=== PATIENT | female | born 1945 | race Caucasian/White ===

== ENCOUNTER 2016-10-02 19:21 | Observation (INO) | payer MEDICARE, OTHER ==
[~2016-10-02] VITALS: Ht 162.6 cm; Wt 77.0 kg
[2016-10-02 20:00] VITALS: BP 216/104; PULSE 80; RESP 18; TEMP 98.4; O2SAT 98
[2016-10-02] MEDS ORDERED: LIPI80TA PO (20:33)
[2016-10-02] MEDS ORDERED: JANU50TA8 PO (20:33)
[2016-10-02] MEDS ORDERED: CIPR250T52 PO (20:33)
[2016-10-02] MEDS ORDERED: LEXA20TA PO (20:33)
[2016-10-02] MEDS ORDERED: OMEP10CA PO (20:33)
[2016-10-02] MEDS ORDERED: LOSA25TA PO (20:55)
[2016-10-02] MEDS ORDERED: AMOX500C PO (20:55)
[2016-10-02] MEDS ORDERED: TETANUS/DIPHTHERIA TOXOID ADULT 0.5 ML VIAL IM ONE (21:00)
--- NOTE | 2016-10-02 21:33 | RADRPT ---
EXAM DATE/TIME: 10/02/2016 21:01 [facility] COMPARISON: No previous studies available for comparison. INDICATIONS : Fall Left knee pain MEDICAL HISTORY : None. SURGICAL HISTORY : None. ENCOUNTER: Initial ACUITY: 1 day PAIN SCORE: 5/10 LOCATION: Left knee FINDINGS: No fracture or subluxation seen of the left knee. There is mild medial and patellofemoral compartment ost or arthritis. No perceptible joint effusion. 2.1 x 4.9 cm benign-appearing chondrous lesion seen in the medullary space of the distal femur. CONCLUSION: 1. Intact left knee. 2. Mild medial and patellofemoral compartment osteoarthritis. 3. Benign appearing enchondroma of the distal femur. Jaime Crespo MD on October 02, 2016 at 21:30 Board Certified Radiologist. This report was verified electronically.
--- NOTE | 2016-10-02 22:08 | RADRPT ---
EXAM DATE/TIME: 10/02/2016 21:57 [facility] COMPARISON: No previous studies available for comparison. INDICATIONS : Trauma; fall. Hematoma left forehead / repetitive questions. RADIATION DOSE: 32.59 CTDIvol (mGy) MEDICAL HISTORY : Hypertension. Diabetes mellitus type 2. SURGICAL HISTORY : None. ENCOUNTER: Initial ACUITY: 1 day PAIN SCALE: Non-responsive LOCATION: cranial TECHNIQUE: Multiple contiguous axial images were obtained of the head. Using automated exposure control and adj ustment of the mA and/or kV according to patient size, radiation dose was kept as low as reasonably a chievable to obtain optimal diagnostic quality images. FINDINGS: CEREBRUM: The ventricles are normal for age. No evidence of midline shift, mass lesion, hemorrhage or acute in farction. No extra-axial fluid collections are seen. POSTERIOR FOSSA: The cerebellum and brainstem are intact. The 4th ventricle is midline. The cerebellopontine angle i s unremarkable. EXTRACRANIAL: There is a left supraorbital scalp hematoma. SKULL: The calvaria is intact. No evidence of skull fracture. CONCLUSION: Left frontal scalp contusion. No bleed or other acute intracranial abnormality. Jaime Crespo MD on October 02, 2016 at 22:06 Board Certified Radiologist. This report was verified electronically.
--- NOTE | 2016-10-02 22:09 | PD ---
HPI Chief Complaint: Fall Time Seen by Provider: 22:03 Travel History International Travel<30 days: No Contact w/Intl Traveler<30days: No Traveled to known affect area: No History of Present Illness HPI 71-year-old female that presents to the ED for evaluation of trip and fall. Patient had a mechanical fall today at a pizza place where she was carrying a pizza box and she tripped on the door edge. Patient hit her head but did not lose consciousness. Patient complains of bony pain to the head. Patient does have a hematoma to the left side of the face as well as abrasions to the face and to the hands bilaterally. Patient also has an abrasion to the left knee. Patient denies any hip or neck pain. No back pain. No chest pain or abdominal pain. Per patient her pain is 3 out of 10 and mostly on the head. She denies taking any blood thinners. She does have a history of hypertension and is supposed to take losartan but she doesn't know how much of that she takes. She did not take her medication today. She denies any drugs or alcohol. Pain does not radiate. Asians states that her last tetanus shot was in 2009. She has an allergy to latex. She denies any blurry vision or double vision. Injury occurred about an hour ago. Patient was brought here by ambulance. [facility] Past Medical History High Cholesterol: Yes Diabetes: Yes Patient Takes Glucophage: Yes (JANUMET, 10/02/16 1000) Diminished Hearing: No GERD: Yes Genitourinary: Yes (CHRONIC UTI) Hypertension: Yes Influenza Vaccination: No ?: Not Tubal Ligation: Yes Past Surgical History Other Surgery: Yes (FIBROIDS REMOVED FROM BREASTS) Social History Alcohol Use: No Tobacco Use: No Substance Use: No Allergies-Medications (Allergen,Severity, Reaction): Coded Allergies: Latex (Verified Allergy, Intermediate, RASH, 10/02/16) Reported Meds & Prescriptions Reported Meds & Active Scripts Active Reported Amoxicillin 500 Mg Cap 500 Mg PO Q6HR Losartan (Losartan Potassium) 25 Mg Tab 12.5 Mg PO DAILY Cipro (Ciprofloxacin HCl) 250 Mg Tab 62.5 Mg PO BID Omeprazole 10 Mg Cap 10 Mg PO DAILY Lexapro (Escitalopram Oxalate) 20 Mg Tab 20 Mg PO DAILY Lipitor (Atorvastatin Calcium) 80 Mg Tab 80 Mg PO HS Janumet (Sitagliptin-Metformin) 50-1,000 Mg Tab 1 Tab PO BID Review of Systems General / Constitutional: No: Fever, Chills, Weight Gain, Weight Loss, Other Eyes: No: Diploplia, Blurred Vision, Photophobia, Drainage, Redness, Foreign Body Sensation, Pain, Tearing, Blind Spots, Visual changes, Blindness, Other HENT: Positive: Headaches, No: Vertigo, Lightheadedness, Sore Throat, Rhinitis , Rhinorrhea, Congestion, Nosebleed, Neck Stiffness, Neck Pain, Masses, Gingival Bleeding, Dental Difficulties, Ear Discharge, Earache, Other Cardiovascular: No: Chest Pain or Discomfort, Palpitations, Irregular Rhythm, Tachycardia, Diaphoresis, Syncope, Dyspnea on exertion, Varicosities, Edema, Cyanosis, Varicosities, Phlebitis, Claudication, Other Respiratory: No: Cough, Shortness of Breath, Wheezing, Sneezing, Orthopnea, Hemoptysis, Stridor, Night Sweats, Pleuritic Pain, Other Gastrointestinal: No: Nausea, Vomiting, Diarrhea, Abdominal Pain, Hematemesis, Hematochezia, Constipation, Changes in Bowel Habits, Indigestion, Dysphagia, Loss of Appetite, Other Genitourinary: No: Urgency, Frequency, Dysuria, Nocturia, Hematuria, Decreased Urinary Output, Oliguria, Hesitancy, Dribbling, Incontinence, Pelvic Pain, Flank Pain, Dyspareunia, Discharge, Dysmenorrhea, Menorrhagia, Metorrhagia, Vaginal Bleeding, Other Musculoskeletal: Positive: Pain, No: Myalgias, Arthralgias, Limited ROM, Weakness, Cramping, Edema, Atrophy, Other Skin: Positive Lesions, No Rash, No Itching, No Dryness, No Lumps, No Hives, No Change in Pigmentation, No Change in nails, No Alopecia, No Breast Lumps, No Breast Tenderness, No Breast Swelling, No Other Neurologic: Positive: Headache, No: Weakness, Dizziness, Syncope, Focal Abnormalities, Coordination Problem, Tremor, Ataxia, Change in Mentation, Slurred Speech, Paresthesia, Incontinence, Seizures, Sensory Disturbance, Other Psychiatric: No: Anxiety, Depression, Suicidal Ideations, Disorder of Thought, Mood Disorder, Substance Abuse, Homicidal Ideation, Other Endocrine: No: Heat Intolerance, Cold Intolerance, Polyuria, Polydipsia, Other Hematologic/Lymphatic: No: Easy Bruising, Lymph Node Enlargement, Other Physical Exam Narrative GENERAL: SKIN: Warm and dry. HEAD: Atraumatic. Normocephalic. Patient has a 1 cm in diameter hematoma to the left eyebrow EYES: Pupils equal and round 4 mm reactive to light and accommodation. No scleral icterus. No injection or drainage. ENT: No nasal bleeding or discharge. Mucous membranes pink and moist. Tongue is midline. No uvula deviation. NECK: Trachea midline. No JVD. CARDIOVASCULAR: Regular rate and rhythm. No murmurs, S3, S4. RESPIRATORY: No accessory muscle use. Clear to auscultation. Breath sounds equal bilaterally. GASTROINTESTINAL: Abdomen soft, non-tender, nondistended. Hepatic and splenic margins not palpable. MUSCULOSKELETAL: Extremities without clubbing, cyanosis, or edema. No obvious deformities. Full range of motion of the upper and lower extremities bilaterally with no pain. Patient does have an abrasion to the left knee. Patient has abrasions to both hands bilaterally more significant on the left hand but both appear to be smaller than 2 cms in diameter. No lacerations noted. 2+ pulses bilaterally lower extremities. No scapular pain. No lumbar, thoracic, cervical spine tenderness to palpation. No pelvic bone tenderness to palpation. No ankle or foot pain noted. She does have a small abrasion to the right first digit and she has a deformity to the right first digit which per patient is chronic for her. NEUROLOGICAL: Awake and alert. No obvious cranial nerve deficits. Motor grossly within normal limits. Five out of 5 muscle strength in the arms and legs. Normal speech. PSYCHIATRIC: Appropriate mood and affect; insight and judgment normal. Data Data Last Documented VS Vital Signs Date Time Temp Pulse Resp B/P Pulse Ox O2 Delivery O2 Flow Rate FiO2 10/02/16 20:00 98.4 80 18 216/104 98 Orders Wound Care (10/02/16 20:50) Tetanus/Diphtheria Tox Adult (Tetanus/Di (10/02/16 21:00) Knee, Complete (4vws) (10/02/16 20:50) Ice/Cold Pack (10/02/16 20:50) Ct Brain W/O Iv Contrast(Rout) (10/02/16 20:50) Ct Cerv Spine W/O Contrast (10/02/16 20:50) Ct Facial Bones W/O Iv Cont (3/11/17 20:50) Complete Blood Count With Diff (10/02/16 21:58) Basic Metabolic Panel (Bmp) (10/02/16 21:58) Prothrombin Time / Inr (Pt) (10/02/16 21:58) Act Partial Throm Time (Ptt) (10/02/16 21:58) Urinalysis - C+S If Indicated (10/02/16 21:58) Magnesium (Mg) (10/02/16 21:58) Chest, Single Ap (10/02/16:58) Iv Access Insert/Monitor (10/02/16 21:58) Ecg Monitoring (10/02/16 21:58) Oximetry (10/02/16 21:58) MDM Medical Decision Making Medical Screen Exam Complete: Yes Emergency Medical Condition: Yes Medical Record Reviewed: Yes Differential Diagnosis Concussion versus ICH versus head injury versus fracture versus trauma versus abrasion versus laceration Narrative Course 71-year-old female that presents to the ED for evaluation of head injury. Patient was properly examined and was found to have signs and symptoms consistent with appears to be traumatic head injury. On initial examination patient was neurovascularly intact and she had no obvious deficits. She was able to answer questions adequately. Patient had initial order for scans of the head as well as the face and the left knee. She wasn't too concerned of the hands and she was able to move them fully with no sign of bony injury. While she was getting the scans I was informed by ED nurse that patient apparently was having some difficulty with memory and she didn't know where she was. Because of this labs were ordered and she was moved to a medical bed for further assessment and treatment. William Phillips Oct 02, 2016 22:09
--- NOTE | 2016-10-02 22:24 | RADRPT ---
EXAM DATE/TIME: 10/02/2016 21:57 [facility] COMPARISON: No previous studies available for comparison. INDICATIONS : Trauma; fall. RADIATION DOSE: 20.74 CTDIvol (mGy) MEDICAL HISTORY : Hypertension. Diabetes mellitus type 2. SURGICAL HISTORY : None. ENCOUNTER: Initial ACUITY: 1 day PAIN SCALE: Non-responsive LOCATION: neck TECHNIQUE: Volumetric scanning of the cervical spine was performed. Multiplanar reconstructions in the sagittal, coronal and oblique axial planes were performed. Using automated exposure control and adjustment o f the mA and/or kV according to patient size, radiation dose was kept as low as reasonably achievable to obtain optimal diagnostic quality images. FINDINGS: There are mild changes of degenerative disc disease. Mild facet arthropathy. No acute fracture or spo ndylolisthesis. No prevertebral soft tissue swelling. Multinodular thyroid noted with a dominant 3.9 cm nodule extending off the inferior left lobe thyroid. Emphysema noted at the lung apices. CONCLUSION: 1. No acute fracture. Mild degenerative disc disease. Jason Caceres MD on October 02, 2016 at 22:19 Board Certified Radiologist. This report was verified electronically.
--- NOTE | 2016-10-02 22:28 | RADRPT ---
EXAM DATE/TIME: 10/02/2016 21:57 [facility] COMPARISON: No previous studies available for comparison. INDICATIONS : Trauma; fall. RADIATION DOSE: 59.06 CTDIvol (mGy) MEDICAL HISTORY : Hypertension. Diabetes mellitus type 2. SURGICAL HISTORY : None. ENCOUNTER: Initial ACUITY: 1 day PAIN SCORE: Non-responsive LOCATION: facial TECHNIQUE: Volumetric scanning of the facial bones was performed. Using automated exposure control and adjustme nt of the mA and/or kV according to patient size, radiation dose was kept as low as reasonably achiev able to obtain optimal diagnostic quality images. FINDINGS: There is a right-sided nasal bone fracture with soft tissue swelling. There is a left frontal scalp h ematoma. No other facial bone fractures are identified. Globes are intact. CONCLUSION: 1. Nasal bone fracture with soft tissue swelling. Left frontal scalp hematoma. Jason Caceres MD on October 02, 2016 at 22:23 Board Certified Radiologist. This report was verified electronically.
[2016-10-02 22:38] LABS: AUTOMATED NEUTROPHIL # 9.4 TH/MM3 (1.8-7.7); BASOPHIL % 0.4 % (0.0-2.0); EOSINOPHIL # 0.1 TH/MM3 (0-0.4); EOSINOPHIL % 0.6 % (0.0-4.0); HEMATOCRIT 40.5 % (35.0-46.0); HEMO FLAGS DIFF FINAL; LYMPH % 21.2 % (9.0-44.0); LYMPHOCYTE # 2.7 TH/MM3 (1.0-4.8); MEAN CELL VOLUME 84.3 FL (80.0-100.0); MEAN CORPUSCULAR HEMOGLOBIN 29.3 PG (27.0-34.0); MEAN CORPUSCULAR HGB CONC 34.8 % (32.0-36.0); MONO % 5.5 % (0.0-8.0); NEUT % 72.3 % (16.0-70.0); PLATELET COUNT 233 TH/MM3 (150-450)
--- NOTE | 2016-10-02 22:57 | RADRPT ---
EXAM DATE/TIME: 10/02/2016 22:31 [facility] COMPARISON: No previous studies available for comparison. INDICATIONS : Trauma, Fall MEDICAL HISTORY : None. SURGICAL HISTORY : None. ENCOUNTER: Initial ACUITY: 1 day PAIN SCORE: 0/10 LOCATION: Bilateral chest FINDINGS: A single view of the chest demonstrates the lungs to be symmetrically aerated without evidence of mas s, infiltrate or effusion. The cardiomediastinal contours are unremarkable. Osseous structures are intact. CONCLUSION: No acute disease. Jason Caceres MD on October 02, 2016 at 22:54 Board Certified Radiologist. This report was verified electronically.
[2016-10-02 23:02] LABS: APTT (PATIENT) 23.7 SEC (24.3-30.1); PROTHROMBIN TIME - PATIENT 10.6 SEC (9.8-11.6)
[2016-10-02 23:03] VITALS: BP 173/93; PULSE 83; RESP 18; TEMP 97.9; O2SAT 99
[2016-10-02 23:23] LABS: MAGNESIUM 1.5 MG/DL (1.5-2.5); POTASSIUM 3.9 MEQ/L (3.5-5.1)
[2016-10-02 23:29] VITALS: BP 173/93; PULSE 82; RESP 18
[2016-10-03] VITALS (7 sets, daily range): BP systolic 114–186; BP diastolic 67–97; PULSE 70–87; RESP 17–21; TEMP 96.6–98.8; O2SAT 92–98
--- NOTE | 2016-10-03 00:29 | PD ---
Data Data Last Documented VS Vital Signs Date Time Temp Pulse Resp B/P Pulse Ox O2 Delivery O2 Flow Rate FiO2 10/02/16 23:03 97.9 83 18 173/93 99 Room Air Orders Wound Care (10/02/16 20:50) Tetanus/Diphtheria Tox Adult (Tetanus/Di (10/02/16 21:00) Knee, Complete (4vws) (10/02/16 20:50) Ice/Cold Pack (10/02/16 20:50) Ct Brain W/O Iv Contrast(Rout) (10/02/16 20:50) Ct Cerv Spine W/O Contrast (10/02/16 20:50) Ct Facial Bones W/O Iv Cont (10/02/16 20:50) Complete Blood Count With Diff (10/02/16 21:58) Basic Metabolic Panel (Bmp) (10/02/16 21:58) Prothrombin Time / Inr (Pt) (10/02/16 21:58) Act Partial Throm Time (Ptt) (10/02/16 21:58) Urinalysis - C+S If Indicated (10/02/16 21:58) Magnesium (Mg) (10/02/16 21:58) Chest, Single Ap (10/02/16 21:58) Iv Access Insert/Monitor (10/02/16 21:58) Ecg Monitoring (10/02/16 21:58) Oximetry (10/02/16 21:58) Drug Screen, Random Urine (10/02/16 23:16) Alcohol (Ethanol) (10/02/16 23:16) Bedside Glucose GUERA.AC&HS (10/03/16 01:42) ^ Blood Glucose Goal (Criteria (10/03/16 01:42) ^ Hypoglycemia 51 - 69 Mg/Dl (10/03/16 01:42) ^ Hypoglycemia 50 Mg/Dl Or < (10/03/16 01:42) ^ Notify Dr: Other (10/03/16 01:42) Dextrose 50% In Rajeev (Vial) Inj (D50w (Vi (10/03/16 01:45) Glucagon Inj (Glucagon Inj) (10/03/16 01:45) Insulin Aspart Supplemtl Scale (Novolog (10/03/16 07:00) Place In Observation (10/03/16 ) Vital Signs (Adult) Q4H (10/03/16 01:42) Activity Oob With Assistance (10/03/16 01:42) Diet 1800 Ada Cons Carb (10/03/16 Breakfast) Sodium Chlor 0.9% 1000 Ml Inj (Ns 1000 M (10/03/16 02:00) Sodium Chloride 0.9% Flush (Ns Flush) (10/03/16 01:45) Sodium Chloride 0.9% Flush (Ns Flush) (10/03/16 09:00) Ondansetron Inj (Zofran Inj) (10/03/16 01:45) Bisacodyl Supp (Dulcolax Supp) (10/03/16 01:45) Comprehensive Metabolic Panel (10/04/16 06:00) Complete Blood Count With Diff (10/04/16 06:00) Scd Bilateral/Knee High GUERA.BID (10/03/16 01:42) Bill Bilateral/Knee High GUERA.QSHIFT (10/03/16 01:42) Acetaminophen (Tylenol) (10/03/16 01:45) Acetamin-Hydrocod 325-5 Mg ([place] 5-325 (10/03/16 01:45) Admit Order (Ed Use Only) (10/03/16 01:47) Labs Laboratory Tests Test 10/02/16 10/02/16 22:20 23:25 White Blood Count 13.0 TH/MM3 Red Blood Count 4.80 MIL/MM3 Hemoglobin 14.1 GM/DL Hematocrit 40.5 % Mean Corpuscular Volume 84.3 FL Mean Corpuscular Hemoglobin 29.3 PG Mean Corpuscular Hemoglobin 34.8 % Concent Red Cell Distribution Width 14.0 % Platelet Count 233 TH/MM3 Mean Platelet Volume 9.4 FL Neutrophils (%) (Auto) 72.3 % Lymphocytes (%) (Auto) 21.2 % Monocytes (%) (Auto) 5.5 % Eosinophils (%) (Auto) 0.6 % Basophils (%) (Auto) 0.4 % Neutrophils # (Auto) 9.4 TH/MM3 Lymphocytes # (Auto) 2.7 TH/MM3 Monocytes # (Auto) 0.7 TH/MM3 Eosinophils # (Auto) 0.1 TH/MM3 Basophils # (Auto) 0.0 TH/MM3 CBC Comment DIFF FINAL Differential Comment Prothrombin Time 10.6 SEC Prothromb Time International 1.0 RATIO Ratio Activated Partial 23.7 SEC Thromboplast Time Sodium Level 140 MEQ/L Potassium Level 3.9 MEQ/L Chloride Level 103 MEQ/L Carbon Dioxide Level 22.0 MEQ/L Anion Gap 15 MEQ/L Blood Urea Nitrogen 14 MG/DL Creatinine 0.99 MG/DL Estimat Glomerular Filtration 56 ML/MIN Rate Random Glucose 125 MG/DL Calcium Level 9.5 MG/DL Magnesium Level 1.5 MG/DL Ethyl Alcohol Level LESS THAN 3 MG/DL [facility] Medical Record Reviewed: Yes Supervised Visit with DANA: Yes Narrative Course CBC & BMP Diagram 10/02/16 22:20 EtOH < 3 INR 1.0 Last 24 hours Impressions Chest X-Ray 10/02/162157 Signed Impressions: Service Date/Time: Sunday, October 02, 2016 22:31 - CONCLUSION: No acute disease. Jason Caceres MD Maxillofacial CT 10/02/162049 Signed Impressions: Service Date/Time: Sunday, October 02, 2016 21:57 - CONCLUSION: 1. Nasal bone fracture with soft tissue swelling. Left frontal scalp hematoma. Jason Caceres MD Knee X-Ray 10/02/[id number] Signed Impressions: Service Date/Time: Sunday, October 02, 2016 21:01 - CONCLUSION: 1. Intact left knee. 2. Mild medial and patellofemoral compartment osteoarthritis. 3. Benign appearing enchondroma of the distal femur. Jaime Crespo MD Head CT 10/02/162049 Signed Impressions: Service Date/Time: Sunday, October 02, 2016 21:57 - CONCLUSION: Left frontal scalp contusion. No bleed or other acute intracranial abnormality. Jaime Crespo MD Cervical Spine CT 10/02/162049 Signed Impressions: Service Date/Time: Sunday, October 02, 2016 21:57 - CONCLUSION: 1. No acute fracture. Mild degenerative disc disease. Jason Caceres MD I, Dr. Valenzuela , have reviewed the advance practice practitioner's documentation and am in agreement unless otherwise documented below, met with the patient face to face, made the diagnosis, and the medical decision making was done by me. *My assessment and Findings: The patient is persistently forgetful at about 3 AM, at time of admission. She'll be admitted for further observation. Case discussed with Dr. Vásquez. Diagnosis Primary Impression: Amnesia Additional Impressions: Fall Qualified Code: W19.XXXA - Fall, initial encounter Cephalohematoma Admitting Information Admitting Physician Requests: Observation Tyron Valenzuela MD Oct 03, 2016 00:29
[2016-10-03] MEDS ORDERED: SODIUM CHLORIDE 0.9% FLUSH 5 ML FLUSH FLUSH PRN (01:45)
[2016-10-03] MEDS ORDERED: DEXTROSE 50% IN WATER 50 ML VIAL(D50) IV PUSH PRN (01:45)
[2016-10-03] MEDS ORDERED: ONDANSETRON HCL 4 MG/2 ML VIAL IVP PRN (01:45)
[2016-10-03] MEDS ORDERED: BISACODYL 10 MG SUPP PR PRN (01:45)
[2016-10-03] MEDS ORDERED: GLUCAGON 1 MG/ML VIAL OTHER PRN (01:45)
[2016-10-03] MEDS ORDERED: ACETAMINOPHEN 325 MG TAB PO PRN (01:45)
--- NOTE | 2016-10-03 04:31 | HHI.HP ---
[facility] Unknown Admission Diagnosis Amnesia, Fall, Forehead Contusion Diagnoses: (1) Fall Diagnosis: Principal (2) Amnesia Diagnosis: Principal (3) Head contusion Diagnosis: Principal (4) DM (diabetes mellitus) Diagnosis: Principal (5) HTN (hypertension) Diagnosis: Principal Travel History International Travel<30 Days: No Contact w/Intl Traveler <30 Da: No Traveled to Known Affected Are: No History of Present Illness This is a 71-year-old female with a PMH of HTN, Hyperlipidemia and DM was brought to the ER by EMS after a slip and fall. Per report, patient had a mechanical fall while walking out of a restaurant, apparently struck head on concrete, no LOC reported. On arrival, pt w/ complaints of headache, noted to have left sided facial/scalp contusion. While in ER, pt w/ episodes of confusion, repeatedly asking for her , disoriented. On arrival, BP 216/ 104, HR 80, O2 sat 98% on RA, Afebrile. BP currently 173/93, HR 83. WBC 13. Chemistry GFR 56. INR normal. Alcohol negative. CT Head with left frontal scalp contusion, no acute intracranial abnormality. CT Maxillofacial with nasal bone fracture with soft tissue swelling. CT Cervical Spine with no acute fracture. Left Knee X-ray with no acute fracture. CXR with no acute findings. Review of Systems Except as stated in HPI: all other systems reviewed are Neg ROS: 14 point review of systems otherwise negative. Past Family Social History Past Medical History PMH: HTN, Hyperlipidemia and DM Past Surgical History PAST SURGICAL HISTORY: Breast Surgery Allergies: Coded Allergies: Latex (Verified Allergy, Intermediate, RASH, 10/02/16) Family History PAST FAMILY HISTORY: Reviewed. No h/o DM or CAD Social History PAST SOCIAL HISTORY: Negative for alcohol, tobacco or drugs. Physical Exam Vital Signs Vital Signs Date Time Temp Pulse Resp B/P Pulse Ox O2 Delivery O2 Flow Rate FiO2 10/02/16 23:03 97.9 83 18 173/93 99 Room Air 10/02/16 20:00 98.4 80 18 216/104 98 Physical Exam PE: GENERAL: Middle-aged white female in no acute distress. HEENT: PERRLA, EOMI. No scleral icterus or conjunctival pallor. No lid lag or facial droop. Facial ecchymosis, scalp contusion/hematoma CARDIOVASCULAR: Regular rate and rhythm. No obvious murmurs to auscultation. No chest tenderness to palpation. RESPIRATORY: No obvious rhonchi or wheezing. Clear to auscultation. Breath sounds equal bilaterally. GASTROINTESTINAL: Abdomen soft, non-tender, nondistended. BS normal. MUSCULOSKELETAL: Extremities without clubbing, cyanosis, or edema. No obvious deformities. Multiple abrasions bilateral upper and lower extremities. NEUROLOGICAL: Awake, alert, intermittent confusion. No focal neurologic deficits. Moving both upper and lower extremities spontaneously. Laboratory Laboratory Tests Test 10/02/16 10/02/16 22:20 23:25 White Blood Count 13.0 Red Blood Count 4.80 Hemoglobin 14.1 Hematocrit 40.5 Mean Corpuscular Volume 84.3 Mean Corpuscular Hemoglobin 29.3 Mean Corpuscular Hemoglobin 34.8 Concent Red Cell Distribution Width 14.0 Platelet Count 233 Mean Platelet Volume 9.4 Neutrophils (%) (Auto) 72.3 Lymphocytes (%) (Auto) 21.2 Monocytes (%) (Auto) 5.5 Eosinophils (%) (Auto) 0.6 Basophils (%) (Auto) 0.4 Neutrophils # (Auto) 9.4 Lymphocytes # (Auto) 2.7 Monocytes # (Auto) 0.7 Eosinophils # (Auto) 0.1 Basophils # (Auto) 0.0 CBC Comment DIFF FINAL Differential Comment Prothrombin Time 10.6 Prothromb Time International 1.0 Ratio Activated Partial 23.7 Thromboplast Time Sodium Level 140 Potassium Level 3.9 Chloride Level 103 Carbon Dioxide Level 22.0 Anion Gap 15 Blood Urea Nitrogen 14 Creatinine 0.99 Estimat Glomerular Filtration 56 Rate Random Glucose 125 Calcium Level 9.5 Magnesium Level 1.5 Ethyl Alcohol Level LESS THAN 3 Result Diagram: 10/02/16221910/02/162219 Assessment and Plan Problem List: (1) Fall ICD Code: W19.XXXA Status: Acute (2) Head contusion ICD Code: S00.93XA Status: Acute (3) Amnesia ICD Code: R41.3 Status: Acute (4) HTN (hypertension) ICD Code: I10 Status: Acute (5) DM (diabetes mellitus) ICD Code: E11.9 Status: Acute Assessment and Plan A/P: 1. Fall: s/p mechanical fall while walking out of restaurant, +head trauma on concrete, no reported LOC. CT Head w/ left frontal scalp contusion, no acute intra-cranial findings, CT C-Spine negative for fracture, CT Maxillofacial w/ nasal fracture, Left Knee X-ray negative for fracture, images reviewed by me. 2. Amnesia: Pt w/ episodes of intermittent confusion, amnesia while in ER, asking same questions repeatedly, now unable to give much history. CT Head negative as above, likely post-concussive episode. Will admit for Observation, expect gradual improvement. Neuro checks. 3. Head Contusion: secondary to mechanical fall w/ head trauma. +scalp hematoma/contusion, no acute intracranial findings. Will monitor. 4. DM: Sliding scale w/ Accu-Cheks, hold Janumet for now. 5. HTN: BP on arrival 216/104, HR 80, likely compounded by acute injury/fall, BP currently 173/93, HR 83. Will monitor. Resume home medications. 6. DVT Prophylaxis: SCD/Teds. 7. Social work for d/c planning as needed. 8. Case discussed w/ ER physician at length. Problem Qualifiers (1) Fall: Qualified Code: W19.XXXA - Fall, initial encounter Ashlyn Vásquez MD Oct 03, 2016 04:31
[2016-10-03] MEDS: SODIUM CHLOR 0.9% 1000 ML INJ 1,000 ML IV SCH ×3 (05:05→21:32)
[2016-10-03 05:46] LABS: BACTERIA, URINE RARE /hpf; BLOOD, URINE NEG (NEG); GLUCOSE,URINE NEG (NEG); KETONE, URINE 10 mg/dL (NEG); MUCUS URINE FEW /lpf (OCC); NITRITE,URINE NEG (NEG); SQUAMOUS EPITHELIAL CELL URINE 1 /hpf (0-5); URINE COLOR YELLOW (YELLW/STRAW)
[2016-10-03 05:47] LABS: COMMENT (UR) CULTURE INDICATED; CULTURE IF INDICATED CULTURE INDICATED
[2016-10-03 06:17] LABS: AMPHETAMINE, URINE NEG (NEG); BARBITURATES, URINE NEG (NEG); COCAINE, URINE NEG (NEG)
[2016-10-03] MEDS ORDERED: INSULIN ASPART SUPPLEMENTAL SCALE SQ SCH (07:00)
[2016-10-03] MEDS: ACETAMINOPHEN/HYDROcodone 325 MG/5 MG TAB PO PRN ×3 (07:16→21:28)
[2016-10-03] MEDS ORDERED: LORazepam 2 MG/ML VIAL IV PUSH PRN (07:45)
[2016-10-03] MEDS ORDERED: PILL SPLITTER OTHER PRN (08:00)
[2016-10-03] MEDS ORDERED: cloNIDine HCL 0.1 MG TAB PO PRN (08:00)
[2016-10-03] MEDS ORDERED: ENALAPRILAT 1.25 MG/ML VIAL IV PRN (08:00)
--- NOTE | 2016-10-03 08:09 | HHI.PR ---
Subjective Remarks Follow up for fall, amnesia. The patient is awake, alert, oriented to person, place, month/year, and President. The patient has difficulty recalling events leading up to her admission. She last remembers ordering pizza then states she must've fell. She had a slight headache this morning, now improved. Denies any other medical complaints at this time. She takes Cipro every day for chronic UTI. She also states she was recently started on Amoxicillin 1 week ago but she does not know why. Objective Vitals Vital Signs Date Time Temp Pulse Resp B/P Pulse Ox O2 Delivery O2 Flow Rate FiO2 10/03/16 06:04 97.8 73 20 186/97 98 10/03/16 05:28 97.0 82 18 164/90 Room Air 10/02/16 23:30 97 Room Air 10/02/16 23:29 82 18 173/93 97 10/02/16 23:03 97.9 83 18 173/93 99 Room Air 10/02/16 20:00 98.4 80 18 216/104 98 Result Diagram: 10/02/16221910/02/162219 Imaging Last Impressions Chest X-Ray 10/02/162157 Signed Impressions: Service Date/Time: Sunday, October 02, 2016 22:31 - CONCLUSION: No acute disease. Jason Caceres MD Maxillofacial CT 10/02/162049 Signed Impressions: Service Date/Time: Sunday, October 02, 2016 21:57 - CONCLUSION: 1. Nasal bone fracture with soft tissue swelling. Left frontal scalp hematoma. Jason Caceres MD Knee X-Ray 10/02/162049 Signed Impressions: Service Date/Time: Sunday, October 02, 2016 21:01 - CONCLUSION: 1. Intact left knee. 2. Mild medial and patellofemoral compartment osteoarthritis. 3. Benign appearing enchondroma of the distal femur. Jaime Crespo MD Head CT 10/02/162049 Signed Impressions: Service Date/Time: Sunday, October 02, 2016 21:57 - CONCLUSION: Left frontal scalp contusion. No bleed or other acute intracranial abnormality. Jaime Crespo MD Cervical Spine CT 10/02/162049 Signed Impressions: Service Date/Time: Sunday, October 02, 2016 21:57 - CONCLUSION: 1. No acute fracture. Mild degenerative disc disease. Jason Caceres MD Objective Remarks GENERAL: Well-developed, well-nourished female patient in NAD. SKIN: Warm and dry. HEAD: Normocephalic. Nasal bridge ecchymoses and edema. EYES: Pupils equal and round. No scleral icterus. No injection or drainage. ENT: No active nasal bleeding. Mucous membranes pink and moist. NECK: Trachea midline. CARDIOVASCULAR: Regular rate and rhythm. RESPIRATORY: No accessory muscle use. Clear to auscultation. Breath sounds equal bilaterally. GASTROINTESTINAL: Abdomen soft, non-tender, nondistended. MUSCULOSKELETAL: Extremities without clubbing, cyanosis, or edema. No obvious deformities. NEUROLOGICAL: Awake and alert, oriented x3. No obvious cranial nerve deficits. Motor grossly within normal limits. 5/5 muscle strength in the arms and legs. Normal speech. PSYCHIATRIC: Appropriate mood and affect; insight and judgment fair to normal. Medications and IVs Current Medications Medications (Trade) Dose Ordered Sig/Massimo Route Start Time Stop Time Status Last Admin (D50w (Vial) Inj) 25 ml UNSCH PRN IV PUSH 10/03/16 01:45 Glucagon 1 mg 1 mg UNSCH PRN OTHER 10/03/16 01:45 (NS 1000 ml Inj) 1,000 ml @ 100 mls/hr Q10H IV 10/03/16 02:00 10/03/16 05:05 (NS Flush) 2 ml UNSCH PRN FLUSH 10/03/16 01:45 (NS Flush) 2 ml BID FLUSH 10/03/16 09:00 (Zofran Inj) 4 mg Q6H PRN IVP 10/03/16 01:45 (Dulcolax Supp) 10 mg DAILY PRN IN 10/03/16 01:45 (Tylenol) 650 mg Q6H PRN PO 10/03/16 01:45 ([place] 5-325 Mg) 1 tab Q4H PRN PO 10/03/16 01:45 10/03/16 07:16 (Ativan Inj) 1 mg Q6H PRN IV PUSH 10/03/16 07:45 (Vasotec Inj) 1.25 mg Q6H PRN IV 10/03/16 08:00 (Catapres) 0.1 mg Q6H PRN PO 10/03/16 08:00 (Lipitor) 80 mg HS PO 10/03/16 21:00 (Lexapro) 20 mg DAILY PO 10/03/16 09:00 (Cozaar) 12.5 mg DAILY PO 10/03/16 09:00 (Protonix) 20 mg DAILY PO 10/03/16 09:00 (Pill Splitter) 1 ea UNSCH PRN OTHER 10/03/16 08:00 (Januvia) 50 mg BIDPC PO 10/03/16 09:00 (Glucophage) 1,000 mg BIDPC PO 10/03/16 09:00 Urinary Catheter: No Vascular Central Line Catheter: No A/P Problem List: (1) Fall ICD Code: W19.XXXA Status: Acute (2) Head contusion ICD Code: S00.93XA Status: Acute (3) Amnesia ICD Code: R41.3 Status: Acute (4) HTN (hypertension) ICD Code: I10 Status: Chronic (5) DM (diabetes mellitus) ICD Code: E11.9 Status: Chronic Assessment and Plan 71-year-old female with a PMH of HTN, Hyperlipidemia and DM was brought to the ER by EMS after a slip and fall while walking out of a restaurant 10/02 Fall: s/p mechanical fall while walking out of restaurant, +head trauma on concrete, no reported LOC. Images reviewed by me: CT Head w/ left frontal scalp contusion, no acute findings. CT C-Spine negative for fracture. CT Maxillofacial w/ nasal fracture. Left Knee X-ray negative for fracture. Consult PT. Fall precautions Amnesia: Likely post-concussive episode. Pt w/ episodes of intermittent confusion/amnesia, asking same questions repeatedly. CT Head negative as above. Monitor in Observation, expect gradual improvement. Neuro checks. Could also be from HTNsive encephalopathy. ST for cognition. Abnormal urinalysis follow-up urine culture Head Contusion: secondary to mechanical fall w/ head trauma. +scalp hematoma/ contusion, no acute intracranial findings. Will monitor. DM: Sliding scale w/ Accu-Cheks, continue patient's Metformin and Janumet. HTN: BP on arrival 216/104, HR 80, likely compounded by acute injury/fall, BP currently 173/93, HR 83. Will monitor. Resume home medications. DVT Prophylaxis: SCD/Teds. Written by Darlene Crawley, acting as scribe for Dr. Leung on 10/03/16 at 08: 06. All or portions of this note were transcribed by scribe []. I, Dr. Matthieu Leung personally performed the history, physical exam, and medical decision making; and confirmed the accuracy of the information in the transcribed note. Authenticated by Dr. Matthieu Leung on 10/03/16 at 15:42. Discharge Planning Possible discharge tomorrow if continue to improve. Problem Qualifiers (1) Fall: Qualified Code: W19.XXXA - Fall, initial encounter Darlene Crawley PA-C Oct 03, 2016 08:09 Matthieu Leung MD Oct 03, 2016 15:42
[2016-10-03] MEDS ORDERED: NON-FORMULARY DRUG (Sitagliptin-Metformin (Janumet) 1 TAB) PO SCH (09:00)
[2016-10-03] MEDS: ESCITALOPRAM OXALATE 20 MG TAB PO SCH (09:47)
[2016-10-03] MEDS: SODIUM CHLORIDE 0.9% FLUSH 5 ML FLUSH FLUSH SCH ×2 (09:48→21:28)
[2016-10-03] MEDS: LOSARTAN 25 MG TAB PO SCH (09:48)
[2016-10-03] MEDS: metFORMIN HCL 500 MG TAB PO SCH ×2 (09:48→16:49)
[2016-10-03] MEDS: PANTOPRAZOLE SOD 20 MG DELAYED RELEASE TAB PO SCH (09:49)
[2016-10-03] MEDS: INSULIN ASPART SUPPLEMENTAL SCALE SQ SCH ×3 (11:00→20:43)
[2016-10-03] MEDS ORDERED: ATORVASTATIN 80 MG TAB PO SCH (21:00)
[2016-10-04 00:30] VITALS: BP 141/72; PULSE 79; RESP 21; TEMP 98.8; O2SAT 98
[2016-10-04 04:47] VITALS: BP 143/86; PULSE 78; RESP 18; TEMP 98.7; O2SAT 97
[2016-10-04] MEDS: ACETAMINOPHEN/HYDROcodone 325 MG/5 MG TAB PO PRN ×2 (04:58→09:19)
[2016-10-04 05:06] LABS: AUTOMATED NEUTROPHIL # 4.8 TH/MM3 (1.8-7.7); BASOPHIL # 0.1 TH/MM3 (0-0.2); BASOPHIL % 0.6 % (0.0-2.0); EOSINOPHIL # 0.2 TH/MM3 (0-0.4); HEMATOCRIT 38.9 % (35.0-46.0); HEMO FLAGS DIFF FINAL; LYMPH % 35.7 % (9.0-44.0); LYMPHOCYTE # 3.1 TH/MM3 (1.0-4.8); MEAN CELL VOLUME 86.5 FL (80.0-100.0); MEAN CORPUSCULAR HEMOGLOBIN 29.2 PG (27.0-34.0); MEAN CORPUSCULAR HGB CONC 33.8 % (32.0-36.0); MONO % 7.2 % (0.0-8.0); NEUT % 54.5 % (16.0-70.0); PLATELET COUNT 210 TH/MM3 (150-450); RED CELL DISTRIBUTION WIDTH 14.2 % (11.6-17.2); WHITE BLOOD COUNT 8.8 TH/MM3 (4.0-11.0)
[2016-10-04 05:25] LABS: ALKALINE PHOSPHATASE 99 U/L (45-117); ALT (GPT) 35 U/L (10-53); ANION GAP 8 MEQ/L (5-15); AST (GOT) 22 U/L (15-37); BICARBONATE 26.5 MEQ/L (21.0-32.0); BLOOD UREA NITROGEN 13 MG/DL (7-18); CHLORIDE 110 MEQ/L (98-107); GLOMERULAR FILTRATION RATE 53 ML/MIN (>89); POTASSIUM 4.1 MEQ/L (3.5-5.1); SODIUM (NA) 144 MEQ/L (136-145); TOTAL BILIRUBIN ADULT 0.6 MG/DL (0.2-1.0)
[2016-10-04] MEDS: SODIUM CHLOR 0.9% 1000 ML INJ 1,000 ML IV SCH (05:39)
[2016-10-04] MEDS: INSULIN ASPART SUPPLEMENTAL SCALE SQ SCH (06:51)
[2016-10-04 07:56] VITALS: BP 145/87; PULSE 64; RESP 16; TEMP 98.1; O2SAT 94
[2016-10-04] MEDS: PANTOPRAZOLE SOD 20 MG DELAYED RELEASE TAB PO SCH (09:06)
[2016-10-04] MEDS: LOSARTAN 25 MG TAB PO SCH (09:06)
[2016-10-04] MEDS: metFORMIN HCL 500 MG TAB PO SCH (09:07)
[2016-10-04] MEDS: ESCITALOPRAM OXALATE 20 MG TAB PO SCH (09:07)
[2016-10-04] MEDS: SODIUM CHLORIDE 0.9% FLUSH 5 ML FLUSH FLUSH SCH (09:07)
--- NOTE | 2016-10-04 10:54 | HHI.PR ---
Subjective Remarks Follow up for fall, nasal fracture, amnesia. The patient believes her memory is much improved today. She is able to recall her PCP's name today. She also remembers she was taking Amoxicillin secondary to recent root canal. She takes Cipro for chronic UTI. She has continued facial pain with bruising. She has no new medical complaints. She feels ready for discharge. Objective Vitals Vital Signs Date Time Temp Pulse Resp B/P Pulse Ox O2 Delivery O2 Flow Rate FiO2 10/04/16 10:19 18 10/04/16 07:56 98.1 64 16 145/87 94 10/04/16 04:47 98.7 78 18 143/86 97 10/04/16 00:30 98.8 79 21 141/72 98 10/03/16 19:48 98.8 87 21 114/68 98 10/03/16 16:02 74 130/83 92 10/03/16 15:34 97.6 74 17 117/69 95 10/03/16 11:30 74 18 177/81 92 Result Diagram: 10/04/1644910/04/16449 Imaging Last Impressions Chest X-Ray 10/02/162157 Signed Impressions: Service Date/Time: Sunday, October 02, 2016 22:31 - CONCLUSION: No acute disease. Jason Caceres MD Maxillofacial CT 10/02/162049 Signed Impressions: Service Date/Time: Sunday, October 02, 2016 21:57 - CONCLUSION: 1. Nasal bone fracture with soft tissue swelling. Left frontal scalp hematoma. Jason Caceres MD Knee X-Ray 10/02/162049 Signed Impressions: Service Date/Time: Sunday, October 02, 2016 21:01 - CONCLUSION: 1. Intact left knee. 2. Mild medial and patellofemoral compartment osteoarthritis. 3. Benign appearing enchondroma of the distal femur. Jaime Crespo MD Head CT 10/02/162049 Signed Impressions: Service Date/Time: Sunday, October 02, 2016 21:57 - CONCLUSION: Left frontal scalp contusion. No bleed or other acute intracranial abnormality. Jaime Crespo MD Cervical Spine CT 10/02/162049 Signed Impressions: Service Date/Time: Sunday, October 02, 2016 21:57 - CONCLUSION: 1. No acute fracture. Mild degenerative disc disease. Jason Caceres MD Objective Remarks GENERAL: Well-developed, well-nourished female patient in NAD. SKIN: Warm and dry. HEAD: Normocephalic. Nasal bridge and bilateral periorbital ecchymoses and edema. EYES: Pupils equal and round. No scleral icterus. No injection or drainage. ENT: No active nasal bleeding. Mucous membranes pink and moist. NECK: Trachea midline. CARDIOVASCULAR: Regular rate and rhythm. No murmur appreciated. RESPIRATORY: No accessory muscle use. Clear to auscultation. Breath sounds equal bilaterally. GASTROINTESTINAL: Abdomen soft, non-tender, nondistended. Hepatic and splenic margins not palpable. MUSCULOSKELETAL: Extremities without clubbing, cyanosis, or edema. No obvious deformities. NEUROLOGICAL: Awake and alert, oriented x4. No obvious cranial nerve deficits. Motor grossly within normal limits. 5/5 muscle strength in the arms and legs. Normal speech. PSYCHIATRIC: Appropriate mood and affect; insight and judgment normal. Medications and IVs Current Medications Medications (Trade) Dose Ordered Sig/Massimo Route Start Time Stop Time Status Last Admin (D50w (Vial) Inj) 25 ml UNSCH PRN IV PUSH 10/03/16 01:45 Glucagon 1 mg 1 mg UNSCH PRN OTHER 10/03/16 01:45 (NS 1000 ml Inj) 1,000 ml @ 100 mls/hr Q10H IV 10/03/16 02:00 10/04/16 05:39 (NS Flush) 2 ml UNSCH PRN FLUSH 10/03/16 01:45 (NS Flush) 2 ml BID FLUSH 10/03/16 09:00 10/04/16 09:07 (Zofran Inj) 4 mg Q6H PRN IVP 10/03/16 01:45 (Dulcolax Supp) 10 mg DAILY PRN [place] 10/03/16 01:45 (Tylenol) 650 mg Q6H PRN PO 10/03/16 01:45 ([place] 5-325 Mg) 1 tab Q4H PRN PO 10/03/16 01:45 10/04/16 09:19 (Ativan Inj) 1 mg Q6H PRN IV PUSH 10/03/16 07:45 (Vasotec Inj) 1.25 mg Q6H PRN IV 10/03/16 08:00 (Catapres) 0.1 mg Q6H PRN PO 10/03/16 08:00 (Lipitor) 80 mg HS PO 10/03/16 21:00 10/03/16 21:28 (Lexapro) 20 mg DAILY PO 10/03/16 09:00 10/04/16 09:07 (Cozaar) 12.5 mg DAILY PO 10/03/16 09:00 10/04/16 09:06 (Protonix) 20 mg DAILY PO 10/03/16 09:00 10/04/16 09:06 (Pill Splitter) 1 ea UNSCH PRN OTHER 10/03/16 08:00 (Januvia) 50 mg BIDPC PO 10/03/16 09:00 10/04/16 09:07 (Glucophage) 1,000 mg BIDPC PO 10/03/16 09:00 10/04/16 09:07 (Trimox) 500 mg Q6HR PO 10/04/16 12:00 (Cipro) 62.5 mg BID PO 10/04/16 11:00 A/P Problem List: (1) Fall ICD Code: W19.XXXA Status: Acute (2) Head contusion ICD Code: S00.93XA Status: Acute (3) Amnesia ICD Code: R41.3 Status: Acute (4) HTN (hypertension) ICD Code: I10 Status: Chronic (5) DM (diabetes mellitus) ICD Code: E11.9 Status: Chronic Assessment and Plan 71-year-old female with a PMH of HTN, Hyperlipidemia and DM was brought to the ER by EMS after a slip and fall while walking out of a restaurant 10/02 Fall: s/p mechanical fall while walking out of restaurant, +head trauma on concrete, no reported LOC. Images reviewed by me: CT Head w/ left frontal scalp contusion, no acute findings. CT C-Spine negative for fracture. CT Maxillofacial w/ nasal fracture. Left Knee X-ray negative for fracture. Consult PT, no PT needed at discharge. Amnesia: Suspect post-concussive episode. Pt w/ episodes of intermittent confusion/amnesia, asking same questions repeatedly. CT Head negative as above. Neuro checks. Monitored in Observation, patient now much improved, AAOx4. Nasal Fracture, Head Contusion: secondary to mechanical fall w/ head trauma. + scalp hematoma/contusion, no acute intracranial findings. Will monitor. DM: Sliding scale w/ Accu-Cheks, continue patient's Metformin and Janumet. HTN: BP on arrival 216/104, HR 80, likely compounded by acute injury/fall, BP currently 173/93, HR 83. Will monitor. Resumed home medications. DVT Prophylaxis: SCD/Teds. Written by Darlene Crawley, acting as scribe for Dr. Leung on 10/04/16 at 10: 53. All or portions of this note were transcribed by scribe []. I, Dr. Matthieu Leung personally performed the history, physical exam, and medical decision making; and confirmed the accuracy of the information in the transcribed note. Authenticated by Dr. Matthieu Leung on 10/04/16 at 16:25. Discharge Planning Discharge patient to home Condition on discharge: Improved Heart Healthy/Diabetes Diet as tolerated [place] activity, no driving Rx written: No changes to medications Follow-up with primary care physician within 1 week Problem Qualifiers (1) Fall: Qualified Code: W19.XXXA - Fall, initial encounter Darlene Crawley PA-C Oct 04, 2016 10:54 Matthieu Leung MD Oct 04, 2016 16:26
[2016-10-04 10:59] VITALS: BP 163/94; PULSE 79; RESP 16; TEMP 97.8; O2SAT 94
[2016-10-04] MEDS ORDERED: CIPROFLOXACIN 250 MG TAB PO SCH (11:00)
--- NOTE | 2016-10-04 11:49 | HHI.DCPOC ---
Discharge Care Plan Diagnosis: (1) Fall (2) Head contusion (3) Amnesia (4) Nasal bone fracture (5) HTN (hypertension) (6) DM (diabetes mellitus) Goals to Promote Your Health * To prevent worsening of your condition and complications * To maintain your health at the optimal level Directions to Meet Your Goals Take your medications as prescribed Follow your dietary instruction Follow activity as directed Keep your appointments as scheduled Take your immunizations and boosters as scheduled If your symptoms worsen call your PCP, if no PCP go to Urgent Care Center or Emergency Room Smoking is Dangerous to Your Health. Avoid second hand smoke Call the 24-hour hour crisis hotline for domestic abuse at Darlene Crawley PA-C Oct 04, 2016 11:49 am
[2016-10-04] MEDS ORDERED: AMOXICILLIN (TRIHYDRATE) 500 MG CAP PO SCH (12:00)
== END 2016-10-04 14:53 | disposition home or self-care (01) ==
LOC: NEPC 19:21 → NEDA 10-03 01:49 → NEPGCP 10-03 05:45
PROVIDERS: ADMIT Internal Medicine; ATTEND Internal Medicine
DX: S00.03XA Contusion of scalp, initial encounter (principal); S02.2XXA Fracture of nasal bones, initial encounter for closed fracture; R41.3 Other amnesia; I10 Essential (primary) hypertension; E11.9 Type 2 diabetes mellitus without complications; E78.00 Pure hypercholesterolemia, unspecified; K21.9 Gastro-esophageal reflux disease without esophagitis; E78.5 Hyperlipidemia, unspecified; Z91.040 Latex allergy status; Z79.84 Long term (current) use of oral hypoglycemic drugs; W01.0XXA Fall on same level from slipping, tripping and stumbling without subsequent striking against object, initial encounter; Y93.01 Activity, walking, marching and hiking; Y92.511 Restaurant or cafe as the place of occurrence of the external cause
CPT/HCPCS: 70450; 70486; 71010; 72125; 73564; 80048; 80053; 80307; 81001; 82948; 83735; 85025; 85610; 85730; 87086; 90471; 90714; 92523; 97161; 97532; 99285; G0378; G8987; G8988; G9159; G9160; J7030